=== PATIENT | female | born 1990 | race Caucasian/White ===

== ENCOUNTER 2018-03-06 19:53 | Observation (INO) | payer MEDICAID ==
[~2018-03-06] VITALS: Ht 165.1 cm; Wt 89.8 kg
[2018-03-06] MEDS ORDERED: CITRIC ACID/SODIUM CITRATE SOLN 30ML UDC PO NR (21:30)
[2018-03-06] MEDS ORDERED: PNV1TABL50 MT (21:32)
[2018-03-06 22:02] LABS: CLARITY URINE CLEAR (CLEAR); COLOR URINE YELLOW (YELLOW); KETONES URINE NEGATIVE (NEGATIVE); LEUKOCYTE ESTERASE URINE NEGATIVE (NEGATIVE); NITRITE URINE NEGATIVE (NEGATIVE); OCCULT BLOOD URINE NEGATIVE (NEGATIVE); PROTEIN URINE NEGATIVE (NEGATIVE); SPECIFIC GRAVITY URINE 1.011 (1.005-1.030); UROBILINOGEN URINE 0.2 E.U./dL (0.2-1.0)
[2018-03-07] MEDS ORDERED: TERBUTALINE SULFATE 1MG/ML VIAL SUBCUT NR (01:45)
== END 2018-03-07 03:30 | disposition home or self-care (01) ==
LOC: INTOOBSV 19:53 → L&D 19:53 → 7EST PP/OB 03-07 02:30 → L&D 03-07 02:35
PROVIDERS: ADMIT Obstetrics & Gynecology; ATTEND Obstetrics & Gynecology
DX: O26.893 Other specified pregnancy related conditions, third trimester (principal); R51 Headache; R07.89 Other chest pain; R45.1 Restlessness and agitation; R06.02 Shortness of breath; Z3A.32 32 weeks gestation of pregnancy
CPT/HCPCS: 76815; 76818; 81003; 96372; 99281; G0378; J3105

== ENCOUNTER 2018-04-19 20:57 | Observation (INO) | payer MEDICAID ==
[~2018-04-19] VITALS: Ht 165.1 cm; Wt 87.5 kg
[~2018-04-19 20:57] MED LIST: PNV1TABL50 MT
== END 2018-04-19 22:40 | disposition home or self-care (01) ==
LOC: 8 EST LDRP 20:57
PROVIDERS: ADMIT Obstetrics & Gynecology; ATTEND Obstetrics & Gynecology
DX: O62.9 Abnormality of forces of labor, unspecified (principal); Z3A.38 38 weeks gestation of pregnancy
CPT/HCPCS: G0378 ×2; 99281

== ENCOUNTER 2019-04-01 06:57 | Emergency (ER) | payer MEDICAID ==
[~2019-04-01] VITALS: Ht 167.6 cm; Wt 64.0 kg
[2019-04-01 07:16] VITALS: BP 126/77
== END 2019-04-01 09:37 | disposition home or self-care (01) ==
LOC: ER 06:57
DX: G47.00 Insomnia, unspecified (principal); R03.0 Elevated blood-pressure reading, without diagnosis of hypertension
CPT/HCPCS: 99283

== ENCOUNTER 2019-04-01 11:43 | Emergency (ER) | payer MEDICAID ==
[~2019-04-01] VITALS: Ht 165.1 cm; Wt 85.0 kg
[2019-04-01 14:27] VITALS: BP 122/78
== END 2019-04-01 16:31 | disposition left against medical advice (07) ==
LOC: ER 11:43
DX: Z53.21 Procedure and treatment not carried out due to patient leaving prior to being seen by health care provider (principal)